=== PATIENT | male | born 1990 | race Caucasian/White ===

== ENCOUNTER 2022-05-18 06:37 | Outpatient (CLI) | payer OTHER ==
[~2022-05-18 06:37] MED LIST: AUGMENTIN1 TAB.SR .; MOTRIN800 MG PO; SKELAXIN800 MG PO; SYNTHROID200 MCG
== END 2022-05-18 06:41 | disposition home or self-care (01) ==
LOC: LAB 06:37
DX: Z20.828 Contact with and (suspected) exposure to other viral communicable diseases (principal); Z20.818 Contact with and (suspected) exposure to other bacterial communicable diseases